=== PATIENT | male | born 1930 | race Caucasian/White ===

== ENCOUNTER 2016-05-27 13:51 | Inpatient (IN) | payer OTHER ==
[~2016-05-27] VITALS: Ht 175.3 cm; Wt 75.8 kg
--- NOTE | 2016-05-27 13:59 | NUR ---
EKG IN PROGRESS IN TRIAGE.
--- NOTE | 2016-05-27 14:13 | NUR ---
DR. SOLIS @ BEDSIDE.
--- NOTE | 2016-05-27 14:22 | NUR ---
awake alert oriented,,stated since morning started to have neck pain, pain acreoss the posterior neck only,no chest pain or sob
[2016-05-27 14:38] LABS: BASOPHIL % 0.6 % (0-2)
[2016-05-27 14:40] LABS: PLATELET COUNT 76 x10^3mcL (130-400); RED CELL DISTRIBUTION WIDTH 16.3 % (11.5-14.5)
[2016-05-27 14:46] LABS: CALCIUM 8.6 mg/dL (8.5-10.1); CARBON DIOXIDE 23.9 mmol/L (21-32); CHLORIDE SERUM 105 mmol/L (98-107); CREATININE SERUM 1.9 mg/dL (0.7-1.3); GLUCOSE SERUM 117 mg/dL (74-106); POTASSIUM SERUM 4.3 mmol/L (3.5-5.1); SODIUM SERUM 140 mmol/L (136-145)
[2016-05-27 14:50] LABS: ALKALINE PHOSPHATASE 78 U/L (46-116); ALT/SGPT 22 U/L (16-63); AST/SGOT 24 U/L (15-37); BILIRUBIN TOTAL 0.9 mg/dL (0.20-1.00); LIPASE 346 IU/L (73-393); MAGNESIUM 2.1 mg/dL (1.8-2.4); TOTAL PROTEIN, SERUM 6.5 g/dL (6.4-8.2)
[2016-05-27 14:53] LABS: ALBUMIN 3.3 g/dL (3.4-5.0)
[2016-05-27] MEDS ORDERED: ZOLOFT25 MG PO (14:55)
[2016-05-27] MEDS ORDERED: NAMENDA10 M2 PO (14:55)
[2016-05-27] MEDS ORDERED: LORAZEPAM1 MG PO (14:55)
[2016-05-27] MEDS ORDERED: NAMENDA PO (14:56)
[2016-05-27] MEDS ORDERED: LEVO-T88 MCG PO (14:56)
[2016-05-27] MEDS ORDERED: ATENOLOL25 MG PO (14:57)
[2016-05-27] MEDS ORDERED: NITROSTAT0.4 MG SL (14:57)
[2016-05-27] MEDS ORDERED: PANTOPRAZOLE SO40 M1 PO (14:57)
[2016-05-27] MEDS ORDERED: LIPITOR40 MG PO (14:57)
[2016-05-27] MEDS ORDERED: ZESTRIL PO (14:58)
[2016-05-27] MEDS ORDERED: COR3 (14:58)
--- NOTE | 2016-05-27 15:37 | NUR ---
BILAT NARES SWABBED FOR MRSA SCREENING.
--- NOTE | 2016-05-27 15:41 | NUR ---
REPORT TO BEV.
[2016-05-27 16:13] LABS: FREE T4 1.23 ng/dL (0.76-1.46); FREE THYROXINE INDEX 2.9 ug/dL (1.4-4.5); T3 TOTAL 0.86 ng/mL; T4(THYROXINE) 7.2 ug/dL (4.7-13.3)
[2016-05-27 16:21] VITALS: BP 109/47
[2016-05-27 16:36] LABS: CHOLESTEROL/HDL RATIO 3.5
[2016-05-27 16:42] VITALS: BP 109/47
--- NOTE | 2016-05-27 16:59 | NUR ---
ADMITTED FR.ER VIA [facility]ERNEY ACCOMPANIED BY ER NURSE.AAOX4.DENIES ANY PAIN AT THE MOMENT. AT BEDSIDE.NS 500 BOLUS RECEIVE FR ER.LUNGS CLEAR. ON AFIB ON THE MONITOR HR=80.ADMISSION ASSESSMENT AND HX COMPLETED.CALL LIGHT WITHIN REACH.INSTRUCTED TO CALL FOR ANY PAIN/DISCOMFORT.WILL CONTINUE TO MONITOR PT.
--- NOTE | 2016-05-27 18:51 | NUR ---
PT STARTING TO GET OUT OF BED AND AGITATED.REORIENTED AND REDIRECTED PT.BED ALARM ON FOR FALL PRECAUTION
--- NOTE | 2016-05-27 19:07 | NUR ---
ELISA PROVIDED FOR SAFETY.ENDORSE TO FELIPE BROWN.
--- NOTE | 2016-05-27 19:55 | NUR ---
AWAKE, VERBALLY RESPONSIVE WIH HARD OF HEARING. SKIN WARM AND DRY TO TOUCH. RESPIRATION EVEN AND UNLABORED. DENIES ANY PAIN/DISCOMFORT AT THIS TIME. APPARENTLY CONFUSED AND VERY FORGETFUL. WILL DO FREQUENT VISUAL CHECK FOR SAFETY.
[2016-05-27 21:16] LABS: IRON 62 ug/dL (65-170); TOTAL IRON BINDING CAPACITY 251 ug/dL (250-450)
[2016-05-27 21:17] LABS: RED BLOOD CELLS 3.35 M/mm3 (4.52-5.90)
--- NOTE | 2016-05-28 00:10 | NUR ---
KEEPS ON REMOVING TELE BOX, EXPLAINED THE RISKS/BENEFITS BUT NO AVAIL. DR VILLAGOMEZ MADE AWARE. CLOSE MONITORING FOR SAFETY. NO S/S OF PAIN/DISCOMFORT. WILL CONTINUE TO MONITOR.
[2016-05-28 05:26] VITALS: BP 104/44; BP 14/44
[2016-05-28 06:11] LABS: BASOPHIL % 0.4 % (0-2)
--- NOTE | 2016-05-28 06:21 | NUR ---
STILL TRYING TO GET OUT OF BED WITHOUT CALLING FOR ANY ASSISTANCE. HIGH RISK FOR FALLS. FREQUENT VISUAL CHECK FOR SAFETY. ALL NEEDS ATTENDED.
[2016-05-28 06:25] LABS: CALCIUM 7.9 mg/dL (8.5-10.1); CARBON DIOXIDE 22.4 mmol/L (21-32); CHLORIDE SERUM 108 mmol/L (98-107); CREATININE SERUM 1.4 mg/dL (0.7-1.3); GLUCOSE SERUM 100 mg/dL (74-106); PHOSPHOROUS 3.8 mg/dL (2.5-4.9); POTASSIUM SERUM 4.3 mmol/L (3.5-5.1); SODIUM SERUM 139 mmol/L (136-145)
[2016-05-28 07:23] LABS: PLATELET COUNT 41 x10^3mcL (130-400); RED CELL DISTRIBUTION WIDTH 16.3 % (11.5-14.5)
--- NOTE | 2016-05-28 07:59 | NUR ---
RECEIVED PT IN BED ALERT AND ORIENTED TO SELF ONLY. CONFUSED. SITTER AT BEDSIDE FOR SAFETY. TELE #17, AFIB 90. DENIES ANY PAIN OR DISCOMFORT. KPAD IN PLACE TO NECK. GENERALIZED WEAKNESS. AMBULATORY WITH ASSISTANCE. DENIES ANY GI UPSET. VOIDS FREELY USING URINAL. NO EDEMA NOTED. SKIN CDI. INSTRUCTED TO USE CALL LIGHT WHEN IN NEED OF ANY ASSISTANCE.
[2016-05-28 10:17] VITALS: BP 90/40
--- NOTE | 2016-05-28 10:32 | NUR ---
BP = 90/40. MAP = 61. AFIB 90'S ON TELE MONITOR. WBC = 3.2. DR DOMINGUEZ MADE AWARE. BOLUS GIVEN ORDERED. PT ASYMPTOMATIC. AND SITTER AT BEDSIDE. WILL CONTINUE TO MONITOR.
[2016-05-28 10:35] LABS: microscopic required? NO
[2016-05-28 10:48] VITALS: BP 110/56
[2016-05-28 10:58] LABS: UA SPECIFIC GRAVITY 1.015 (1.005-1.035); urine erythrocyte NEGATIVE (NEGATIVE)
[2016-05-28 11:41] LABS: AMPHETAMINE QUAL UR NONE DETECTED (NEG <=1000)
--- NOTE | 2016-05-28 12:35 | NUR ---
PT NOTE 950-1020 Pt IS AN 85 Y/O MALE ADMITTED DUE TO GENERALIZED WEAKNESS; DX WITH CHEST PAIN AND NECK PAIN. 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 Pt WAS SEEN AWAKE RESTING IN BED, AGREED TO PARTICIPATE W/PT. SPOUSE PRESENT AT BEDSIDE. S:REPORTS NECK PAIN, 4/10 BASED ON APONTE-WAITE SCALE O:BP AT REST SUPINE 98/48, HR 66; SaO2 99% ON RA BED MOBILITY: ROLLING INDEP, SUPINE<->SIT CGA TRANSFERS: SIT-STAND CGA; BP SITTING 70/51, HR 91; C/O MIN DIZZINESS STANDING BALANCE G-/F+; BP STANDING 81/40, HR 93 GAIT 4 LATERAL STEPS NO DEVICE; DISTANCE LIMITED BY LOW BP; BP IN SUPINE POST GAIT 85/41, HR 89. DENIES INCREASE IN DIZZINESS. Pt WAS ASSISTED BTB, CALL LIGHT AND TABLE IN REACH, 3 SIDERAILS UP; Pt MADE COMFORTABLE WITH BLANKETS; APPRECIATED CARE. RN NOTIFIED. A:Pt DEMONSTRATES WEAKNESS, DECREASED BALANCE/GAIT SAFETY; FALL RISK. Pt WAS INSTRUCTED ON [place] FOR BOTH LE TO BE PERFORMED IN SUPINE, EXPRESSED UNDERSTANDING. P:POC TO INCLUDE THEREX, THERACT, GAIT TRAINING, BALANCE EX, SAFETY EDUC; ONCE DAILY 6X/WK X1 WEEK. HHPT IS RECOMMENDED POST ACUTE TO CONT W/REHAB. DX AND POC DISCUSSSED W/CUTTING ROOM SUPERVISOR. [id number] PVE(2) SET-UP, SAFETY [id number], [id number], FR SCORE=24in [id number] THEREX FOR BOTH LE INCLUDING HEEL SLIDES, SLR, HIP ABD, AND ANKLE PUMPS; X 10 REPS EACH. THEREX8
[2016-05-28 14:45] VITALS: BP 115/56
[2016-05-28 16:47] VITALS: BP 129/70
--- NOTE | 2016-05-28 17:51 | NUR ---
PT LYING IN BED, ALERT AND ORIENTED TO SELF AND TIME/DATE/YEAR. REORIENTED TO PLACE. DENIES ANY PAIN OR DISCOMFORT. AFIB 80'S ON TELE MONITOR. SITTER AT BEDSIDE FOR SAFETY.
[2016-05-28 19:17] LABS: BASOPHIL % 0.3 % (0-2); RED CELL DISTRIBUTION WIDTH 16.3 % (11.5-14.5)
[2016-05-28 19:18] LABS: PLATELET COUNT 42 x10^3mcL (130-400)
--- NOTE | 2016-05-28 20:19 | NUR ---
RECEIVED PT FROM AM NURSE IN NO ACUTE DISTRESS. A/OX2. CONFUSED AT TIMES. HX OF DEMENTIA. TELE #17 AFIB. HR 89. DENIES ANY PAIN OR DISCOMFORT AT THIS TIME. PULSES PALPABLE AND EVEN. NO EDEMA NOTED. LUNGS CLEAR ON RA. VOIDS FREELY. AMBULATORY WITH ASSIST. SKIN WARM DRY AND INTACT. IV INTACT AND PATENT TO LFA. BED IN LOWEST POSITION. CALL LIGHT WITHIN REACH. WILL CONT TO MONITOR.
[2016-05-28 20:30] VITALS: BP 143/59
--- NOTE | 2016-05-28 22:51 | NUR ---
C/O MILD NECK PAIN. TYLENOL ADMINISTERED PRESCRIBED.
--- NOTE | 2016-05-29 01:31 | NUR ---
MOVED PT TO ROOM 248A FOR CONTINUATION OF CARE
[2016-05-29 05:37] VITALS: BP 124/67
[2016-05-29 06:59] LABS: CALCIUM 8.1 mg/dL (8.5-10.1); CARBON DIOXIDE 22.9 mmol/L (21-32); CHLORIDE SERUM 111 mmol/L (98-107); CREATININE SERUM 1.4 mg/dL (0.7-1.3); GLUCOSE SERUM 102 mg/dL (74-106); MAGNESIUM 2.1 mg/dL (1.8-2.4); PHOSPHOROUS 4.2 mg/dL (2.5-4.9); POTASSIUM SERUM 4.4 mmol/L (3.5-5.1); SODIUM SERUM 142 mmol/L (136-145)
--- NOTE | 2016-05-29 07:10 | NUR ---
RECEIVED Pt. AAOX2, RESPIRATIONS EVEN AND UNLABORED. DENIES PAIN/DISCOMFORT. DENIES CHEST PAIN/PRESSURE. TELE IN PLACE. IVF RUNNING TO IV AT RIGHT FOREARM PATENT AND INTACT. WILL CONTINUE TO MONITOR. CALL LIGHT IN REACH. BED LOW/LOCKED.
[2016-05-29 07:15] LABS: BASOPHIL % 2.2 % (0-2); RED CELL DISTRIBUTION WIDTH 15.5 % (11.5-14.5)
[2016-05-29 07:16] LABS: PLATELET COUNT 35 x10^3mcL (130-400)
[2016-05-29 07:38] VITALS: BP 124/67
--- NOTE | 2016-05-29 08:20 | NUR ---
MADE ROUNDS WITH DR. PEÑA AND MEDICINE TEAM, Pt. POSSIBLE DISCHARGE TODAY AND AGREED WITH PLAN OF CARE.
--- NOTE | 2016-05-29 09:07 | NUR ---
Pt. SALINE LOCKED.
[2016-05-29 10:00] VITALS: BP 103/57
--- NOTE | 2016-05-29 12:07 | NUR ---
PT NOTES TIME 0912-3645 S: CLEARED BY RN FOR P.T. TX. PATIENT IS AWAKE & ALERT IN A SEMI NAIK POSITION IN BED. AGREEABLE TO P.T. TX. PATIENT C/O R SHOULDER PAIN DURING TX 05/09 & BLURRY VISION DURING GAIT TRAINING. RN IS AWARE. O: VITALS AT REST IN SUPINE BP 129/69, HR 89 BPM, SPO2 ON RA 96% BED MOBILITY: SUPINE<>SIT INDEPENDENT VITALS IN SITTING BP 114/53, HR 90 BPM TRANSFER: SIT<>STAND W/ CGA TOILETING W/ CGA/SBA. VC GIVEN TO USE BILAT UE TO PUSH FROM BED & WT. SHIFT FORWARD FOR SIT>STAND TRANSFER. VITALS IN STANDING BP 117/55, HR 94 BPM GAIT: 80FT W/ NO A.D. CGA. DURING GAIT TRAINING PATIENT BEGAN TO C/O BLURRY VISION. PATIENT GAIT IS UNSTEADY. TENDS TO LATERALLY LEAN TO THE RIGHT. DURING GAIT TRAINING, PATIENT TENDS TO KEEP GAZE ON FLOOR & REQUIRES VC TO KEEP GAZE FORWARD IN ORDER TO SAFELY MANUEVER AROUND OBSTACLES. ADDITIONALLY, PATIENT WOULD VEER TO THE RIGHT DURING GAIT TRAINING. PATIENT DEMO'S MILD UNSTEADINESS IN GAIT. EDUCATED PATIENT ON SAFETY FOR FALL PREVENTION W/ GOOD UNDERSTANDING. THER EX IN SUPINE ANKLE DF/PF, KNEE FLEX/EXT, HIP FLEXION X 10 REPS. PATIENT ALSO INSTRUCTED IN SHOULDER ROLLS, SCAPULAR RETRACTION SUNNY. PATIENT IS SAFELY & COMFORTABLY IN A SEMI NAIK POSITION IN BED W/ CALL BUTTON & TABLE IN REACH. BED ALARM ON. LEFT IN CARE OF . VITALS AFTER TX BP 120/57, HR 95 BPM, SPO2 ON RA 96%. RN NOTIFIED. P: DISCUSSED W/ PRIMARY PHYSICAL THERAPIST GT15',TA15',TE8',PVE((2) ADDITIONAL STAFF SBA FOR SAFETY)
--- NOTE | 2016-05-29 13:31 | NUR ---
Pt. C/O RIGHT SHOULDER PAIN 5/10 SCALE NORCO 5/325 GIVEN.
[2016-05-29] MEDS ORDERED: PEP20 PO (13:52)
[2016-05-29] MEDS ORDERED: ECO81 PO (13:52)
[2016-05-29] MEDS ORDERED: THERA TABS1 TAB PO (13:52)
[2016-05-29 14:05] LABS: BASOPHIL % 0.4 % (0-2)
[2016-05-29 14:14] LABS: RED CELL DISTRIBUTION WIDTH 16.2 % (11.5-14.5)
[2016-05-29 14:15] LABS: PLATELET COUNT 37 x10^3mcL (130-400)
--- NOTE | 2016-05-29 15:07 | NUR ---
Pt. REMAINS AAOX2 WITH FORGETFULNESS, RESPIRATIONS EVEN AND UNLABORED. DENIES PAIN/DISCOMFORT AT THIS TIME. DENIES CHEST PAIN/PRESSURE. NO DISTRESS NOTED. ALL RX INSTRUCTIONS EXPLAINED TO Pt. AND [place] AND VERBALIZED UNDERSTANDING. TELE 17 RETURNED. IV AT RFA REMOVED WITH CATH INTACT. Pt. LEFT WITH ALL BELONGINGS.
== END 2016-05-29 15:23 | disposition home health service (06) | DRG 391 ==
LOC: ED 13:51 → DU 15:15
PROVIDERS: Emergency Medicine; ADMIT Family Medicine
DX: K21.9 Gastro-esophageal reflux disease without esophagitis (principal); N17.0 Acute kidney failure with tubular necrosis; E44.0 Moderate protein-calorie malnutrition; I48.91 Unspecified atrial fibrillation; I95.1 Orthostatic hypotension; F32.9 Major depressive disorder, single episode, unspecified; I12.9 Hypertensive chronic kidney disease with stage 1 through stage 4 chronic kidney disease, or unspecified chronic kidney disease; N18.3 Chronic kidney disease, stage 3 (moderate); E78.5 Hyperlipidemia, unspecified; M50.323 Other cervical disc degeneration at C6-C7 level; D63.8 Anemia in other chronic diseases classified elsewhere; I25.2 Old myocardial infarction; Z95.1 Presence of aortocoronary bypass graft; G30.8 Other Alzheimer's disease; F02.80 Dementia in other diseases classified elsewhere, unspecified severity, without behavioral disturbance, psychotic disturbance, mood disturbance, and anxiety; Z87.891 Personal history of nicotine dependence; Z86.73 Personal history of transient ischemic attack (TIA), and cerebral infarction without residual deficits
CPT/HCPCS: 80307; 83880; 84439; 97110-GP; 97116-GP; 97530-GP; J2543; J3010; J7030; J7040; Q0092